=== PATIENT | female | born 1965 | race Caucasian/White ===

== ENCOUNTER 2019-06-27 00:03 | Emergency (ER) | payer OTHER ==
[~2019-06-27] VITALS: Ht 167.6 cm; Wt 50.8 kg
[2019-06-27] MEDS ORDERED: LORAZEPAM (00:09)
[2019-06-27 00:10] VITALS: BP 120/72
== END 2019-06-27 00:47 ==
LOC: M.ERS 00:03
DX: M79.621 Pain in right upper arm (principal); W06.XXXA Fall from bed, initial encounter; Y93.89 Activity, other specified; Y92.89 Other specified places as the place of occurrence of the external cause; Y99.8 Other external cause status